=== PATIENT | female | born 1945 | race Caucasian/White ===

== ENCOUNTER 2019-11-01 12:01 | Emergency (ER) | payer MEDICARE, MEDICAID, SELFPAY ==
[2019-11-01 12:18] VITALS: BP 139/59; PULSE 73; RESP 18; TEMP 36.3; O2SAT 98
[2019-11-01 12:33] LABS: Glucose Point of Care > 500 (65-105)
--- NOTE | 2019-11-01 12:41 | ED.GENADULT ---
HPI - General Adult General Chief complaint: Back Pain/Injury Stated complaint: Back Pain Time Seen by Provider: 11/01/19 12:49 Source: patient and RN notes reviewed Mode of arrival: ambulatory Limitations: no limitations History of Present Illness HPI narrative: This patient has had bilateral lower lumbar back pain and feeling of muscle spasms in her back during the past 1 week this began actually on 10/26/2019 without trauma. She states she has a history of bilateral lower back pain associated with degenerative osteoarthritis and stenosis. She is never had a history of herniated disc. She has no pain radiating into her buttocks or down the legs to the feet. She has no numbness or tingling sensation in the legs. She does not hurt in the thoracic or neck area. She has had some frequency of urination during the past 1-1/2 to 2 weeks, she is diabetic on insulin and takes it twice a day. She did not take her insulin this morning. She states that she does have a glucometer at home but has not taken her blood sugar readings for the past week, but prior to that it was running 2 10-2 20. She has not had any ear pain, no nasal drainage, no sore throat, no fever, no cough. She has had no nausea, no vomiting, no diarrhea. She has had no hematuria, no dysuria, no pyuria but has had the polyuria. She has had mild polydipsia as well. Related Data Home Medications Medication Instructions Recorded Confirmed aspirin [Aspir-81] 81 mg PO DAILY 11/01/19 11/01/19 ferrous sulfate 325 mg PO DAILY 11/01/19 11/01/19 furosemide 40 mg PO DAILY 11/01/19 11/01/19 gabapentin 300 mg PO DAILY 11/01/19 11/01/19 insulin glargine [Lantus Solostar 60 unit SUBCUT BID 11/01/19 11/01/19 U-100 Insulin] magnesium oxide 400 mg PO DAILY 11/01/19 11/01/19 metoprolol succinate 25 mg PO DAILY 11/01/19 11/01/19 omeprazole 20 mg PO DAILY 11/01/19 11/01/19 potassium chloride 10 meq PO DAILY 11/01/19 11/01/19 pramipexole 0.5 mg PO DAILY 11/01/19 11/01/19 simvastatin 10 mg PO DAILY 11/01/19 11/01/19 spironolactone 25 mg PO DAILY 11/01/19 11/01/19 Allergies Allergy/AdvReac Type Severity Reaction Status Date / Time acetaminophen Allergy Mild sick to Verified 11/01/19 12:43 stomach hydrocodone Allergy Mild sick to Verified 11/01/19 12:43 stomach Sulfa (Sulfonamide Allergy Unknown Unknown Unverified 11/01/19 12:43 Antibiotics) fibrates Allergy Severe anaphalxis Uncoded 11/01/19 12:43 Review of Systems Review of Systems: Narrative: CONSTITUTIONAL: Denies fever, chills, or sweats. EYES: Denies visual changes, redness, or discharge. ENT: Denies rhinorrhea, congestion, sore throat, or otalgia. CARDIOVASCULAR: Denies chest pain, palpitations, or edema. RESPIRATORY: Denies cough or dyspnea. GASTROINTESTINAL: Denies abdominal pain, nausea, vomiting, or diarrhea. GENITOURINARY: Denies dysuria or hematuria. SKIN: Denies rash or itching. MUSCULOSKELETAL: Denies back pain, joint pain, or myalgia. NEUROLOGIC: Denies headache, numbness, or weakness. PSYCHIATRIC: Denies anxiety or depression. noncontributory except as pertains to the past medical history and history of present illness. [facility] Family History Family History (Updated 12/28/16 @ 23:56 by DOCTOR UNKNOWN) Mother Hypertension Family history of diabetes mellitus in first degree relative Family history of coronary artery disease, Onset Age: 72 Patient's mother is Father Family history of coronary artery disease, Onset Age: 74 Patient's father is Social History Social History Smoking status: Never smoker Alcohol intake: never Comments At time of signature, I have reviewed and agree with nursing past medical, surgical, social, and family history.Please see nursing chart for further information. There is no relevant family history pertinent to the presenting complaint. Exam Narrative: Exam Narrative: GENERAL: Well-appearing, well-nourished, an
== END 2019-11-01 13:08 | disposition home or self-care (01) ==
PROVIDERS: Emergency Provider Family Medicine; PCP Internal Medicine
DX: S39.012A Strain of muscle, fascia and tendon of lower back, initial encounter (principal); E11.9 Type 2 diabetes mellitus without complications; Z79.4 Long term (current) use of insulin; M48.061 Spinal stenosis, lumbar region without neurogenic claudication; M47.816 Spondylosis without myelopathy or radiculopathy, lumbar region; R63.1 Polydipsia; R35.8 Other polyuria
CPT/HCPCS: 81003; 82948; 87086; 87088; 99213; G0463

== ENCOUNTER 2020-01-20 09:26 | Emergency (ER) | payer MEDICARE, MEDICAID, SELFPAY ==
[2020-01-20 09:37] VITALS: BP 153/61; PULSE 96; RESP 18; TEMP 36.6; O2SAT 98
--- NOTE | 2020-01-20 09:39 | ED.GENADULT ---
HPI - General Adult General Chief complaint: Skin/Abscess/Foreign Body Stated complaint: Skin irritation Time Seen by Provider: 01/20/20 09:40 Source: patient and RN notes reviewed Mode of arrival: ambulatory Limitations: no limitations History of Present Illness HPI narrative: 74-year-old female presents with complaints of redness, tenderness, and swelling to right lower buttock for the past 4 days. China says she treated site with Prid without relief and then called her PMD on 01/19/20 who started her on Bactrim. Bactrim 2 doses, last this morning without relief. Tylenol (arthritis strength) without relief. Tender to touch. No drainage. No fever or chills. No abdominal pain, nausea, and vomiting. Denies headaches, weakness, fatigue, myalgia, or facial swelling. Denies chest pain or dyspnea. Denies cough, rhinorrhea, congestion, sore throat, nausea, vomiting, abdominal pain, and diarrhea. Tolerating po intake well. Denies recent traveling. Denies concerns for COVID-19 or exposures been home since [id number] order except for essential household needs and returned home. Remains active. Some parts of this dictation were generated by voice recognition software and may contain typographical and/or grammatical inaccuracies. Related Data Home Medications Medication Instructions Recorded Confirmed aspirin [Aspir-81] 81 mg PO DAILY 11/01/19 11/01/19 ferrous sulfate 325 mg PO DAILY 11/01/19 11/01/19 simvastatin 10 mg PO DAILY 11/01/19 11/01/19 cholecalciferol (vitamin D3) 100 mcg PO DAILY 01/20/20 01/20/20 [Vitamin D3] furosemide [Lasix] 80 mg PO DAILY 01/20/20 01/20/20 insulin glargine [Lantus Solostar 55 unit SUBCUT BID 01/20/20 01/20/20 U-100 Insulin] mecobalamin (vitamin B12) 1 mcg PO 01/20/20 metoprolol tartrate [Lopressor] 25 mg PO BID 01/20/20 01/20/20 Allergies Allergy/AdvReac Type Severity Reaction Status Date / Time acetaminophen Allergy Mild sick to Verified 01/20/20 09:41 stomach hydrocodone Allergy Mild sick to Verified 01/20/20 09:41 stomach Sulfa (Sulfonamide Allergy Unknown Unknown Unverified 01/20/20 09:41 Antibiotics) fibrates Allergy Severe anaphalxis Uncoded 01/20/20 09:41 Review of Systems Review of Systems: Narrative: CONSTITUTIONAL: Denies fever, chills, sweats. EYES: Denies visual changes, redness, discharge. ENT: Denies rhinorrhea, congestion, sore throat, otalgia. CARDIOVASCULAR: Denies chest pain, palpitations, edema. RESPIRATORY: Denies dyspnea, wheezing, cough. GASTROINTESTINAL: Denies abdominal pain, nausea, vomiting, diarrhea. GENITOURINARY: Denies dysuria, hematuria, abnormal discharge. SKIN: Denies rash or itching. Right lower buttock with redness, tenderness, swelling, and drainage. MUSCULOSKELETAL: Denies acute back pain, joint pain, or myalgia. NEUROLOGIC: Denies numbness or focal weakness. PSYCHIATRIC: Denies anxiety or depression. All systems reviewed & are unremarkable except as noted in HPI and below PMFSH Past Medical History Medical History (Updated 01/20/20 @ 10:51 by ALF Collado) Congestive heart failure Coronary artery disease Heart valve disorder History of gastroesophageal reflux (GERD) Hypercholesteremia Hypertension Surgical History Surgical History (Updated 01/20/20 @ 10:42 by ALF Collado) Heart valve replaced History of cardiac catheterization Stented coronary artery Family History Family History Mother Hypertension Family history of diabetes mellitus in first degree relative Family history of coronary artery disease, Onset Age: 72 Patient's mother is Father Family history of coronary artery disease, Onset Age: 74 Patient's father is Social History Social History (Updated 01/20/20 @ 10:43 by ALF Collado) Smoking status: Never smoker Second hand tobacco smoke exposure: No Alcohol i
== END 2020-01-20 10:10 | disposition home or self-care (01) ==
PROVIDERS: Emergency Provider Nurse Practitioner Family
DX: L02.31 Cutaneous abscess of buttock (principal); I25.10 Atherosclerotic heart disease of native coronary artery without angina pectoris; I50.9 Heart failure, unspecified; I11.0 Hypertensive heart disease with heart failure
CPT/HCPCS: 99211; G0463

== ENCOUNTER 2020-04-09 08:46 | Inpatient (IN) | payer MEDICARE, MEDICAID, SELFPAY ==
[2020-04-09] VITALS (24 sets, daily range): BP systolic 96–134; BP diastolic 47–90; PULSE 44–124; RESP 21–34; TEMP 35.8–38.7; O2SAT 72–100; BMI 42.6
--- NOTE | ~2020-04-09 | XR_ITS ---
EXAMINATION: XR chest 1V portable INDICATION: Shortness of breath, pulmonary edema TECHNIQUE: Portable AP chest at 0525 hours COMPARISON: 04/09/2020 FINDINGS: Diffuse patchy interstitial opacities persist with interval worsening in the upper lung zon es. There is no pleural effusion or pneumothorax. The cardiomediastinal silhouette is stable. There a re changes of prior cardiac valve surgery. IMPRESSION: 1. Diffuse lung disease with interval worsening in the upper lung zones, consistent with pneumonia an d/or pulmonary edema and/or acute respiratory distress syndrome (ARDS). Reviewed, dictated and finalized at location A. IMPRESSION: 1. Diffuse lung disease with interval worsening in the upper lung zones, consis tent with pneumonia and/or pulmonary edema and/or acute respiratory distress sy ndrome (ARDS).
--- NOTE | ~2020-04-09 | XR_ITS ---
EXAMINATION: XR chest 1V portable INDICATION: Shortness of breath and hypoxemia TECHNIQUE: Portable AP chest at 1002 hours COMPARISON: 02/11/2017 FINDINGS: There are airspace opacities of the mid and lower lung zones. No pleural effusion or pneumo thorax is identified. The heart size is normal. There are changes of prior cardiac valve surgery. IMPRESSION: 1. Airspace opacities of the mid and lower lung zones, consistent with pneumonia and/or pulmonary cedrick ma. Reviewed, dictated and finalized at location A. IMPRESSION: 1. Airspace opacities of the mid and lower lung zones, consistent with pneumoni a and/or pulmonary edema.
--- NOTE | 2020-04-09 08:54 | ED.GENADULT ---
HPI - General Adult General Chief complaint: Shortness of Breath/Dyspnea Stated complaint: SOB Time Seen by Provider: 04/09/20 08:54 Source: patient Mode of arrival: wheelchair Limitations: no limitations History of Present Illness HPI narrative: Patient is a 74-year-old female with a history of CHF, congestive heart failure, CABG who presents to the emergency department for evaluation of shortness of breath. Patient reports a 5-day history of worsening shortness of breath, productive cough. She reports chest pain with breathing. No nausea, diaphoresis, jaw pain or neck pain. She denies fever or chills. She reports worsening abdominal swelling and leg swelling. She has been compliant with her medications, she takes 80/40 Lasix daily, did take her medications this morning. She reports she has had no recent sick contacts or recent travel. Patient reports a wet cough. No hemoptysis. She denies any chest pain. Related Data Home Medications Medication Instructions Recorded Confirmed aspirin [Aspir-81] 81 mg PO DAILY 11/01/19 04/09/20 ferrous sulfate 325 mg PO DAILY 11/01/19 04/09/20 simvastatin 10 mg PO DAILY 11/01/19 04/09/20 cholecalciferol (vitamin D3) 100 mcg PO DAILY 01/20/20 04/09/20 [Vitamin D3] furosemide [Lasix] 120 mg PO BID 01/20/20 04/09/20 insulin glargine [Lantus Solostar 55 unit SUBCUT BID 01/20/20 04/09/20 U-100 Insulin] mecobalamin (vitamin B12) 1 mcg PO DAILY 01/20/20 04/09/20 metoprolol tartrate [Lopressor] 25 mg PO BID 01/20/20 04/09/20 gabapentin 300 mg PO DAILY 04/09/20 04/09/20 Allergies Allergy/AdvReac Type Severity Reaction Status Date / Time Fibrate Anti-Lipidemics Allergy Severe Anaphylaxis Verified 04/09/20 12:21 acetaminophen Allergy Mild sick to Verified 04/09/20 09:21 stomach hydrocodone Allergy Mild sick to Verified 04/09/20 09:21 stomach Sulfa (Sulfonamide Allergy Unknown Unknown Verified 04/09/20 09:21 Antibiotics) fibrates Allergy Severe anaphalxis Uncoded 01/20/20 09:41 Review of Systems Review of Systems: Narrative: CONSTITUTIONAL: Denies fever, chills, or sweats. EYES: Denies visual changes ENT: Denies rhinorrhea, congestion CARDIOVASCULAR:Reports chest pain with breathing, palpitations, reports bilateral lower extremity edema RESPIRATORY: Reports cough and shortness of breath GASTROINTESTINAL: Denies abdominal pain, nausea, vomiting, or diarrhea. GENITOURINARY: Denies dysuria or hematuria. SKIN: Denies rash or itching. MUSCULOSKELETAL: Denies back pain, joint pain, or myalgia. NEUROLOGIC: Denies headache, numbness, or weakness. [facility] Past Medical History Medical History Congestive heart failure Coronary artery disease Heart valve disorder History of gastroesophageal reflux (GERD) Hypercholesteremia Hypertension Surgical History Surgical History (Reviewed 04/09/20 @ 09: by Sondra Dumont MD) Heart valve replaced History of cardiac catheterization Stented coronary artery Family History Family History (Reviewed 04/09/20 @ 09: by Sondra Dumont MD) Mother Hypertension Family history of diabetes mellitus in first degree relative Family history of coronary artery disease, Onset Age: 72 Patient's mother is Father Family history of coronary artery disease, Onset Age: 74 Patient's father is Social History Social History (Reviewed 04/09/20 @ 09: by Sondra Dumont MD) Smoking status: Never smoker Second hand tobacco smoke exposure: No Alcohol intake: never Substance use: never Gender identity (if verbalized by the patient): Female Spiritual care concerns: No Exam Narrative: Exam Narrative: GENERAL: Awake, alert, conversant, dyspneic HEAD: Normocephalic, atraumatic. EYES: PERRLA and EOMI. ENT: Nares clear, no rhinorrhea or epistaxis. Mucous membranes moist. NECK: Supple. CHEST: Respiratory distress, oxygen 70% on ro
--- NOTE | 2020-04-09 09:02 | ECG_ITS ---
Measurements Intervals [place] Rate: 69 P: -46 OK: 173 QRS: 11 QRSD: 138 T: 76 QT: 470 QTc: 507 Interpretive Statements WANDERING PACEMAKER LEFT BUNDLE BRANCH BLOCK ABNORMAL ECG Electronically Signed On 04-09-2020 14:05:12 CDT by Quinton Russell D.O.
[2020-04-09 09:17] LABS: Basophils Percent Auto 0.3 % (0.2-1.2); Hematocrit 30.9 % (37.0-47.0); Hemoglobin 9.9 g/dL (12.0-15.0); Immature Granulocyte Absolute 0.02 K/mm3 (0.00-0.031); Immature Granulocyte Percent A 0.6 % (0-0.5); Lymphocytes Absolute Auto 1.01 K/mm3 (0.9-3.2); Lymphocytes Percent Auto 29.8 % (18.3-44.2); Mean Corpuscular Hemoglobin 27.9 pg (26-34); Mean Platelet Volume 10.4 fl (7.4-10.4); Monocytes Absolute Auto 0.2 K/mm3 (0.1-0.6); Monocytes Percent Auto 6.8 % (2.6-8.5); Neutrophils Absolute Auto 2.1 K/mm3 (1.3-6.7); Neutrophils Percent Auto 62.5 % (45.5-73.1); Platelet Count Result 116 k/mm3 (150-375); Red Blood Count 3.55 M/mm3 (4.2-5.4); Red Cell Distribution Width 16.3 % (11.5-14.5); White Blood Count 3.4 K/mm3 (4.5-10.0)
[2020-04-09] MEDS: FUROSEMIDE INJ 40 MG/4 ML VIAL 20 MG IV PUSH (09:21)
[2020-04-09 09:28] LABS: Alanine Aminotransferase 25 U/L (4-35); Albumin Level 3.5 g/dL (3.5-5.1); Alkaline Phosphatase 124 U/L (38-126); Aspartate Amino Transferase 53 U/L (14-36); Bilirubin,Total 0.4 mg/dL (0.2-1.3); Blood Urea Nitrogen 64 mg/dL (7-17); Calcium 8.2 mg/dL (8.4-10.2); Carbon Dioxide 21 mmol/L (22-30); Chloride 99 mmol/L (98-107); Estimated CRCL calculation 22 ml/min; Estimated Glomerular Filt Rate 19; Glucose 293 mg/dL (65-105); INR 1.1; Partial Thromboplastin Time 39.2 SECONDS (22.3-36.8); Potassium 4.8 mmol/L (3.4-5.0); Prothrombin Time 13.9 Seconds (11.1-14.7); Sodium 131 mmol/L (137-145)
[2020-04-09 09:35] LABS: Fractional Inspired Oxygen 32 %; HCO3 ABG 19.1 mEq/l (22.0-26.0); Oxygen Content ABG 13.3 %vol (16.0-22.0); Oxygen Saturation ABG 97.1 % (95.0-100.0); Oxyhemoglobin 95.6 % THb (90.0-100.0); PCO2 ABG 35.9 mmHg (35.0-45.0); PO2 ABG 97.2 mmHg (80.0-100.0); PO2 FiO2 Ratio Arterial Blood 3.04 %; Total Hemoglobin 9.8 g/dL (12.0-18.0); pH ABG 7.343 (7.350-7.450)
[2020-04-09 09:36] LABS: Device NASAL CANNULA; Modified Allen's Test Pass; Site Drawn RIGHT RADIAL
[2020-04-09 09:44] LABS: NT Pro B Type Natriuretic Pept 1100 PG/ML (5-100); Troponin I 0.105 ng/mL (0.000-0.034)
[2020-04-09 09:46] LABS: Appearance Urine Clear (Clear); Color Urine Yellow (Yellow); Hyaline Casts Urine 30-49 /lpf; Mucus Urine Rare /lpf; RBC Urine 0-2 /hpf (0-2); Squamous Epithelial Cell Urine Few /hpf (Few); WBC Urine 0-3 /hpf
[2020-04-09 09:47] LABS: Blood Urine Negative (Negative); Glucose Urine UA Negative (Negative); Ketones Urine Negative (Negative); Protein Urine Trace mg/dL (Negative)
[2020-04-09 09:48] LABS: Add Urine Microscopic? YES; Bilirubin Urine Negative (Negative); Leukocyte Esterase Ur Negative LEU/UL (Negative); Nitrate Urine Negative (Negative); Urobilinogen Urine Negative mg/dL (<2.0)
--- NOTE | 2020-04-09 10:17 | PC.NURSE ---
Patient BP 93/46, verbal order at this time to not give nitroglycerin drip r/t low bp.
[2020-04-09 11:04] LABS: CRP 6.8 mg/dL (<1.0); Lactate Dehydrogenase 1063 U/L (313-618)
--- NOTE | 2020-04-09 11:10 | PC.NURSE ---
Report received from RENATO Johnson. Pt on bipap, denies needs at this time.
--- NOTE | 2020-04-09 11:16 | PC.NURSE ---
Spoke with Peg(patients daughter) , updated that patients mother is going to be admitted.
[2020-04-09] MEDS: FUROSEMIDE INJ 100 MG/10 ML VIAL 80 MG IV PUSH (11:34)
--- NOTE | 2020-04-09 12:46 | ADMGEN ---
This patient, China Mcclendon, was admitted to Intensive Care Unit-4. Patient/family oriented to hospital policies and general routines including ID bracelet, bed and alarms, visiting hours, pain management, procedures, bathroom and other care routines, personal items, smoking policy, room service/diet, and visiting hours. Valuables list has been completed. Information on how to activate the Rapid Response Team has been discussed. Patient/Family are encouraged to report perceived risks to care and to ask questions if they do not understand what they are told or what they should do.
--- NOTE | 2020-04-09 13:34 | WPDCNINT ---
Assessment and Plan Assessment and plan (1) Respiratory failure: Qualifiers: Chronicity: acute Respiratory failure complication: hypoxia Qualified Code(s): J96.01 - Acute respiratory failure with hypoxia Code(s): J96.90 - Respiratory failure, unspecified, unspecified whether with hypoxia or hypercapnia Status: Acute Assessment and Plan: Patient presented on 04/09/2020 with shortness of breath, poor productive sputum, yellow in color for approximately 5-7 days. She was hypoxic in the ER with O2 sats of 70% on room air. Patient did improve after being placed on BiPAP. -she is currently on BiPAP setting of 12/5, 30% FiO2 with adequate tidal volume -patient being diuresed. -started patient on ceftriaxone and azithromycin in the ER -patient being aggressively diuresed per Cardiology hold consulted from the ED (2) Community acquired pneumonia: Qualifiers: Laterality: unspecified laterality Qualified Code(s): J18.9 - Pneumonia, unspecified organism Code(s): J18.9 - Pneumonia, unspecified organism Status: Acute Assessment and Plan: Chest x-ray shows bilateral infiltrates, likely pneumonia versus pulmonary edema -patient with cough productive of yellow sputum, will send sputum cultures -continue antibiotics as above - (3) Congestive heart failure: Qualifiers: Heart failure type: other Qualified Code(s): I50.9 - Heart failure, unspecified Code(s): I50.9 - Heart failure, unspecified Status: Acute Assessment and Plan: Patient with elevated proBNP, chest x-ray shows bilateral pulmonary edema/infiltrates -will obtain echocardiogram -patient is being diuresed, closely monitor urine output (4) Sepsis: Qualifiers: Acute respiratory failure type: with hypoxia Sepsis acute organ dysfunction status: with acute organ dysfunction Sepsis type: sepsis due to unspecified organism Severe sepsis acute organ dysfunction type: acute respiratory failure Severe sepsis shock status: without septic shock Qualified Code(s): A41.9 - Sepsis, unspecified organism; R65.20 - Severe sepsis without septic shock; J96.01 - Acute respiratory failure with hypoxia Code(s): A41.9 - Sepsis, unspecified organism Status: Acute Assessment and Plan: Pancytopenia, leukopenia, bilateral infiltrates on chest x-ray along with cough productive of yellow sputum -possible pneumonia -continue antibiotics as above -continue to monitor hemodynamics (5) Suspected 2019 novel coronavirus infection: Code(s): Z20.828 - Contact with and (suspected) exposure to other viral communicable diseases Status: Acute Assessment and Plan: Patient with leukopenia, pancytopenia currently elevated ferritin LDH and CRP. Procalcitonin pending, -will order D-dimer -SARS-CoV-2 PCR has been obtained -patient placed in negative pressure room since she is on BiPAP, with droplet, airborne and contact isolation/precautions (6) Essential hypertension: Code(s): I10 - Essential (primary) hypertension Status: Acute Assessment and Plan: Blood pressures have been stable, will hold all antihypertensives at this time (7) Hyperlipidemia: Code(s): E78.5 - Hyperlipidemia, unspecified Status: Acute Assessment and Plan: Will hold statin at this time since patient is on BiPAP (8) Acute kidney injury: Code(s): N17.9 - Acute kidney failure, unspecified Status: Acute Assessment and Plan: Acute kidney injury could be related to volume overload, sepsis/pneumonia -patient currently being diuresed, will to recheck BMP later this evening -continue to monitor urine output, electrolytes and renal function (9) Diabetes mellitus: Qualifiers: Diabetes mellitus type: type 2 Diabetes mellitus travel freight and 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
[2020-04-09 14:29] LABS: Troponin I 0.097 ng/mL (0.000-0.034)
[2020-04-09 14:42] LABS: D Dimer 0.39 ug/mL (<0.48)
--- NOTE | 2020-04-09 15:35 | PM.IMHP ---
H&P: HPI History of Present Illness Chief complaint: chf,pneumonia,sepsis Narrative: China Mcclendon is a 74 year old female who has a history of congestive heart failure and biological tissue aortic valve replacement. According to her home medications she takes 120 mg of Lasix p.o. b.i.d. which the patient confirmed with me. She stated she did take her a.m. dose this morning. She reported to ER that she had worsening abdominal swelling and leg swelling. She has been compliant with her home medications. She has not had any recent sick contacts. She has not had any fever chills. She said she has had a productive cough is mostly clear phlegm but sometimes she has thick yellow phlegm. Patient has chest pain with breathing. No nausea or vomiting. She has not had any fever chills. Her mask when she is out shopping. Patient stated that she has not had any previous problems with her kidneys. The patient was found to be hypoxic in the emergency room with her O2 sats in the 70s. She was placed on a BiPAP machine. She had bilateral coarse breath sounds in the emergency room. She was given a total of 100 mg of IV Lasix in the emergency room and a Argueta catheter was placed. Patient's BNP was 1100. Troponin initially was 0.105. 3 hour troponin was 0.097. Chest x-ray was read as of the mid and lower lung zones consistent with pneumonia and/or pulmonary edema. Patient was swabbed for covid 19. She is empirically started on is at the [facility]. Which looks similar to her labs 1 year ago. ABGs pH was 7.343. CO2 was normal PO2 was normal bicarb was 19.1 which is low. Patient was placed on a BiPAP machine 12/5 with oxygen titrate 90% FiO2 I believe is 30%. Patient appears to be tolerating well. She has a Argueta catheter draining clear yellow urine. H&H is 9.9 and 30.9. Platelets lower low at 116 which appears to be her baseline. 2.5 with a previous normal value. Blood pressure is holding at 104/47. CRP is noted to be 6.8. LDH is 1063. Lactic is normal. Ferritin is 448. Patient is talking in full sentences. She is awake and talkative. Date of service 04/09/2020 The shell worker was consulted has already seen the patient. Review of Systems Review of Systems: All systems reviewed & are unremarkable except as noted in HPI and below Constitutional: Constitutional: Reports as per HPI and Reports no additional constitutional complaints Eyes: Eyes: Reports as per HPI and Reports no additional eye complaints ENT: Reports system reviewed and no additional complaints, except as documented and Reports Normal hearing present Cardiovascular: Cardiovascular: Reports no additional cardiovascular complaints Respiratory: Respiratory: Reports no additional respiratory complaints and Reports no additional respiratory complaints Gastrointestinal: Gastrointestinal: Reports as per HPI and Reports no additional gastrointestinal complaints Musculoskeletal: Musculoskeletal: Reports no additional musculoskeletal complaints Integumentary/Breasts: Skin/Breast: Reports system reviewed and no additional complaints, except as docu and Reports as per HPI Neurologic: Reports system reviewed and no additional complaints, except as documented, Reports as per HPI and Reports Normal hearing present Psychiatric: Psychiatric: Reports no additional psychiatric complaints and Reports as per HPI Endocrine: Endocrine: Reports no additional endocrine complaints Hematologic/Lymphatic: Hematologic/Lymphatic: Reports no additional hematologic/lymphatic complaints Allergic/Immunologic: Allergic/Immunologic: Reports no additional allergic/immunologic complaints [facility] Past Medical History Medical History (Updated 04/09/20 @ 15:59 by Jody Galvez NP) Atrial fibrillation No anticoagulation paroxysmal Congestive heart failure Coronary artery disease Heart valve disorder History of gastroesophageal reflux (GERD) Hypercholesteremia Hypertension Surgical History Surgic
[2020-04-09] MEDS: INSULIN ASPART (*BKC) 100 UNITS/ML SUB-Q (15:43)
[2020-04-09 16:54] LABS: Glucose Point of Care 290 (65-105)
[2020-04-09 17:14] LABS: Troponin I 0.086 ng/mL (0.000-0.034)
[2020-04-09] MEDS: guaiFENesin/DEXTROMETHORPHAN 10 ML UDC PO (20:16)
--- NOTE | 2020-04-09 21:09 | PC.NURSE ---
At 04/09/20201999 patient noted to desaturate to 78%. Heart rate dropped to 40 with desaturation. Patient found to be in 3rd degree heart block. Dr. Lucas, Cardiology, called and orders received. Patient asymptomatic with low heart rate. BP remains stable.
[2020-04-09] MEDS: DOPamine 400 MG/D5W 250 ML 400 MG/250 ML BAG 10.2 MG IV CONT (21:27)
[2020-04-09] MEDS: HEPARIN SODIUM 5,000 UNITS/ML VIAL 5000 UNITS SUB-Q (21:28)
[2020-04-09 23:42] LABS: Glucose Point of Care 230 (65-105)
--- NOTE | 2020-04-09 23:53 | PC.NURSE ---
Patient noted to be in sinus tachycardia with a rate of 118 at 2150. Complains of nausea. Dopamine help and cardiology paged. Patient nausea subsided shortly after holding dopamine drip.
[2020-04-10] VITALS (12 sets, daily range): BP systolic 91–117; BP diastolic 41–60; PULSE 59–87; RESP 23–30; TEMP 36.1–37.7; O2SAT 91–100
[2020-04-10 05:28] LABS: Base Excess ABG -6.1 mEq/l (+/-2.0); Carboxyhemoglobin 0.3 % THb (0-2.0); Device NON-INVASIVE VENT; Fractional Inspired Oxygen 80 %; HCO3 ABG 19.1 mEq/l (22.0-26.0); Methemoglobin ABG 0.4 %THb (0-1.5); Modified Allen's Test Pass; Oxygen Content ABG 16.3 %vol (16.0-22.0); Oxygen Saturation ABG 98.3 % (95.0-100.0); Oxyhemoglobin 96.8 % THb (90.0-100.0); PCO2 ABG 36.5 mmHg (35.0-45.0); PO2 ABG 123.1 mmHg (80.0-100.0); PO2 FiO2 Ratio Arterial Blood 1.54 %; Reduced Hemoglobin 2.5 %THb (0-5.0); Site Drawn RIGHT RADIAL; Total Hemoglobin 11.8 g/dL (12.0-18.0); pH ABG 7.336 (7.350-7.450)
[2020-04-10] MEDS: HEPARIN SODIUM 5,000 UNITS/ML VIAL 5000 UNITS SUB-Q (05:29)
[2020-04-10 05:31] LABS: Non-Invasive Expiratory Pressure 5 CMH2O; Non-Invasive Inspiratory Pressure 12 CMH2O; Non-Invasive Vent Rate 12 /MIN
[2020-04-10 05:38] LABS: Hematocrit 30.7 % (37.0-47.0); Hemoglobin 9.6 g/dL (12.0-15.0); Immature Granulocyte Absolute 0.02 K/mm3 (0.00-0.031); Immature Granulocyte Percent A 0.5 % (0-0.5); Lymphocytes Absolute Auto 0.64 K/mm3 (0.9-3.2); Lymphocytes Percent Auto 17.3 % (18.3-44.2); Mean Corpuscular HGB Conc 31.3 g/dl (32-36); Mean Corpuscular Hemoglobin 27.4 pg (26-34); Mean Corpuscular Volume 87.7 fl (80-100); Mean Platelet Volume 10.4 fl (7.4-10.4); Monocytes Absolute Auto 0.2 K/mm3 (0.1-0.6); Monocytes Percent Auto 5.1 % (2.6-8.5); Neutrophils Absolute Auto 2.9 K/mm3 (1.3-6.7); Neutrophils Percent Auto 77.1 % (45.5-73.1); Platelet Count Result 95 k/mm3 (150-375); Red Cell Distribution Width 15.9 % (11.5-14.5); White Blood Count 3.7 K/mm3 (4.5-10.0)
[2020-04-10 05:50] LABS: D Dimer 0.57 ug/mL (<0.48)
[2020-04-10 05:58] LABS: Alanine Aminotransferase 22 U/L (4-35); Albumin Level 3.1 g/dL (3.5-5.1); Alkaline Phosphatase 96 U/L (38-126); Aspartate Amino Transferase 57 U/L (14-36); Bilirubin,Total 0.3 mg/dL (0.2-1.3); Blood Urea Nitrogen 70 mg/dL (7-17); Calcium 7.8 mg/dL (8.4-10.2); Carbon Dioxide 22 mmol/L (22-30); Chloride 101 mmol/L (98-107); Estimated CRCL calculation 24 ml/min; Estimated Glomerular Filt Rate 21; Glucose 265 mg/dL (65-105); Lactate Dehydrogenase 1243 U/L (313-618); Magnesium 2.2 mg/dL (1.6-2.3); Phosphorus 5.1 mg/dL (2.5-4.5); Potassium 5.3 mmol/L (3.4-5.0); Sodium 133 mmol/L (137-145)
[2020-04-10 06:03] LABS: Troponin I 0.105 ng/mL (0.000-0.034)
[2020-04-10 06:05] LABS: CRP 14.7 mg/dL (<1.0)
[2020-04-10 06:40] LABS: Hemoglobin A1C 10.5 % (<5.7)
[2020-04-10] MEDS: INSULIN ASPART (*BKC) 100 UNITS/ML SUB-Q ×2 (09:38→11:59)
[2020-04-10] MEDS: INSULIN GLARGINE (*BKC) 100 UNITS/ML 10 UNITS SUB-Q (09:38)
[2020-04-10] MEDS: guaiFENesin/DEXTROMETHORPHAN 10 ML UDC PO ×2 (09:39→12:47)
--- NOTE | 2020-04-10 10:16 | PM.CNCAR ---
Assessment and Plan Additional Plan Acute pulm edema, likely related to AV disease, possible precipitated by pneumonia, currently COVID-19 rule out. CHB last night resolved, plan TTE, Lasix 100 mg IV BID, get medical records from OSH, can use dopamine for BP support if she develops hypotension. History of Present Illness History of Present Illness Consult date/time: 04/10/20 10:16 Consult reason: congestive heart failure Reason For Visit: chf,pneumonia,sepsis Narrative: Patient presented with one week Hx of progressive SOB that has been sever and worse with lying flat and better with sitting, worse with mild activity, associated with cough, but no fever or sick contacts. She had AVR in [facility] 2017. No chest pain, she received lasix 100 mg IV yesterday and no significant improvement in her status, currently being evaluated for COVID-19 infection. She continue to be on nasal cannula. She developed CHB yesterday with HR down to 40s that resolved with Dopamine infusion and developed sinus tachycardia, and dopamine was discontinued. Review of Systems Review of Systems: All systems reviewed & are unremarkable except as noted in HPI and below PMFSH Past Medical History Medical History (Updated 04/09/20 @ 15:59 by Jody Galvez NP) Atrial fibrillation No anticoagulation paroxysmal Congestive heart failure Coronary artery disease Heart valve disorder History of gastroesophageal reflux (GERD) Hypercholesteremia Hypertension Surgical History Surgical History (Updated 04/09/20 @ 15:59 by Jody Galvez NP) Aortic valve replaced Heart valve replaced Bovine History of cardiac catheterization She stated that she did not have any stents placed or an open heart surgery. Family History Family History Mother Hypertension Family history of diabetes mellitus in first degree relative Family history of coronary artery disease, Onset Age: 72 Patient's mother is Father Family history of coronary artery disease, Onset Age: 74 Patient's father is Social History Social History (Updated 04/09/20 @ 16:01 by Jody Galvez NP) Social History: The patient stated that she lives home alone. She had 3 biological children but 1 in a house fire. She is a . 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 She also worked in a [employer] at 1 time. She desires to be a full code. At this time she does not have durable power deputy commonwealth's attorney for healthcare. But she will allow her children to make and life decisions for her. She states that she did not use tobacco alcohol marijuana or illicit drugs. Smoking status: Never smoker Second hand tobacco smoke exposure: No Alcohol intake: never Substance use: never Living arrangements: alone Gender identity (if verbalized by the patient): Female Spiritual care concerns: No Meds Home Medications and Allergies Home Medications Medication Instructions Recorded Confirmed Type aspirin [Aspir-81] 81 mg PO DAILY 11/01/19 04/09/20 History ferrous sulfate 325 mg PO DAILY 11/01/19 04/09/20 History simvastatin 10 mg PO DAILY 11/01/19 04/09/20 History cholecalciferol (vitamin D3) 100 mcg PO DAILY 01/20/20 04/09/20 History [Vitamin D3] furosemide [Lasix] 120 mg PO BID 01/20/20 04/09/20 History insulin glargine [Lantus Solostar 55 unit SUBCUT BID 01/20/20 04/09/20 History U-100 Insulin] mecobalamin (vitamin B12) 1 mcg PO DAILY 01/20/20 04/09/20 History metoprolol tartrate [Lopressor] 25 mg PO BID 01/20/20 04/09/20 History gabapentin 300 mg PO DAILY 04/09/20 04/09/20 History Allergies Allergy/AdvReac Type Severity Reaction Status Date / Time Fibrate Anti-Lipidemics Allergy Severe Anaphylaxis Verified 04/09/20 12:21 hydrocodone Allergy Mild sick to Verified 04/09/20 09:21 stomach Sulfa (Sulfonamide Allergy Unknown Unknown Verified 04/09/20 09:21 Antibiotics) f
--- NOTE | 2020-04-10 11:10 | WPDINTPN ---
Progress Note: A&P Assessment and Plan (1) Respiratory failure: Qualifiers: Chronicity: acute Respiratory failure complication: hypoxia Qualified Code(s): J96.01 - Acute respiratory failure with hypoxia Code(s): J96.90 - Respiratory failure, unspecified, unspecified whether with hypoxia or hypercapnia Status: Acute Assessment and Plan: Patient presented on 04/09/2020 with shortness of breath, poor productive sputum, yellow in color for approximately 5-7 days. She was hypoxic in the ER with O2 sats of 70% on room air. Patient did improve after being placed on BiPAP. -she is currently on BiPAP setting of 08/27, 80% FiO2 with adequate tidal volume -will place patient on flow oxygen therapy, 80% FiO2 and 40-50 L flow rate -patient being diuresed per Cardiology -continue ceftriaxone, I discontinue the azithromycin as patient had an episode of complete heart block last night. Was started on doxycycline (2) Community acquired pneumonia: Qualifiers: Laterality: unspecified laterality Qualified Code(s): J18.9 - Pneumonia, unspecified organism Code(s): J18.9 - Pneumonia, unspecified organism Status: Acute Assessment and Plan: Chest x-ray shows bilateral infiltrates, likely pneumonia versus pulmonary edema -patient with cough productive of yellow sputum, will send sputum cultures -continue antibiotics as above - (3) Congestive heart failure: Qualifiers: Heart failure type: other Qualified Code(s): I50.9 - Heart failure, unspecified Code(s): I50.9 - Heart failure, unspecified Status: Acute Assessment and Plan: Patient with elevated proBNP, chest x-ray shows worsening bilateral pulmonary edema/infiltrates -will obtain echocardiogram -patient is being diuresed, closely monitor urine output -appreciate cardiology evaluation recommendation (4) Sepsis: Qualifiers: Acute respiratory failure type: with hypoxia Sepsis acute organ dysfunction status: with acute organ dysfunction Sepsis type: sepsis due to unspecified organism Severe sepsis acute organ dysfunction type: acute respiratory failure Severe sepsis shock status: without septic shock Qualified Code(s): A41.9 - Sepsis, unspecified organism; R65.20 - Severe sepsis without septic shock; J96.01 - Acute respiratory failure with hypoxia Code(s): A41.9 - Sepsis, unspecified organism Status: Acute Assessment and Plan: Pancytopenia, leukopenia, bilateral infiltrates on chest x-ray along with cough productive of yellow sputum -possible pneumonia -continue antibiotics as above -continue to monitor hemodynamics (5) Suspected 2019 novel coronavirus infection: Code(s): Z20.828 - Contact with and (suspected) exposure to other viral communicable diseases Status: Acute Assessment and Plan: Patient with leukopenia, pancytopenia currently -SARS-CoV-2 PCR has been obtained -patient placed in negative pressure room since she is on BiPAP, with droplet, airborne and contact isolation/precautions (6) Essential hypertension: Code(s): I10 - Essential (primary) hypertension Status: Acute Assessment and Plan: Blood pressures have been stable, will hold all antihypertensives at this time (7) Hyperlipidemia: Qualifiers: Hyperlipidemia type: unspecified Qualified Code(s): E78.5 - Hyperlipidemia, unspecified Code(s): E78.5 - Hyperlipidemia, unspecified Status: Acute Assessment and Plan: Will hold statin at this time since patient is on BiPAP (8) Acute kidney injury: Code(s): N17.9 - Acute kidney failure, unspecified Status: Acute Assessment and Plan: Acute kidney injury could be related to volume overload, sepsis/pneumonia -creatinine slightly improved -patient currently being diuresed, -continue to monitor urine output, electrolytes and renal function (9) Diabetes mellitus: Qualifiers:
[2020-04-10] MEDS: DEXAMETHASONE SOD PHOS INJ 4 MG/ML VIAL 6 MG IV PUSH (11:57)
[2020-04-10 12:58] LABS: SARS-CoV-2 RNA PCR Positive
--- NOTE | 2020-04-10 16:15 | PM.DS ---
DS: Admitting Diagnosis Admitting Diagnosis Admitting Diagnosis: Acute respiratory failure with hypoxia DS: Discharge Diagnosis Discharge Diagnosis (1) Respiratory failure: Qualifiers: Chronicity: acute Respiratory failure complication: hypoxia Qualified Code(s): J96.01 - Acute respiratory failure with hypoxia Code(s): J96.90 - Respiratory failure, unspecified, unspecified whether with hypoxia or hypercapnia Status: Acute Assessment and Plan: The patient is on a BiPAP and her ABGs are within normal limits at this time. She has 12/5 on the BiPAP with 30% FiO2. To maintain O2 saturations greater than 90%. pt is covid positive. She is being treated for community-acquired pneumonia. family requesting transfer to [facility]. pt accepted to [facility] dr k[place]land. (2) Congestive heart failure: Qualifiers: Heart failure type: other Qualified Code(s): I50.9 - Heart failure, unspecified Code(s): I50.9 - Heart failure, unspecified Status: Acute Assessment and Plan: An echo has been ordered for the patient and cardiology has been consulted. Cardiology consultation greatly be appreciated. Patient has been started on IV Lasix for pulmonary edema. pt was on dopamine infusion for 20 minutes last night because of bradycardia. (3) Community acquired pneumonia: Qualifiers: Laterality: unspecified laterality Qualified Code(s): J18.9 - Pneumonia, unspecified organism Code(s): J18.9 - Pneumonia, unspecified organism Status: Acute Assessment and Plan: Patient was started on azithromycin and Rocephin. (4) Sepsis: Qualifiers: Acute respiratory failure type: with hypoxia Sepsis acute organ dysfunction status: with acute organ dysfunction Sepsis type: sepsis due to unspecified organism Severe sepsis acute organ dysfunction type: acute respiratory failure Severe sepsis shock status: without septic shock Qualified Code(s): A41.9 - Sepsis, unspecified organism; R65.20 - Severe sepsis without septic shock; J96.01 - Acute respiratory failure with hypoxia Code(s): A41.9 - Sepsis, unspecified organism Status: Acute Assessment and Plan: Patient is being treated with antibiotics. (5) Suspected 2019 novel coronavirus infection: Code(s): Z20.828 - Contact with and (suspected) exposure to other viral communicable diseases Status: Acute Assessment and Plan: Patient's ferritin and CRP are elevated. LDH is elevated. She has been swabbed for covid 19. (6) Acute kidney injury: Code(s): N17.9 - Acute kidney failure, unspecified Status: Acute Assessment and Plan: Continue to monitor (7) Elevated troponin: Code(s): R79.89 - Other specified abnormal findings of blood chemistry Status: Acute Assessment and Plan: An echo has been ordered. (8) Diabetes mellitus: Qualifiers: Diabetes mellitus type: type 2 Diabetes mellitus group home insulin use: with group home use Diabetes mellitus complication status: with other specified complication Qualified Code(s): E11.69 - Type 2 diabetes mellitus with other specified complication; Z79.4 - long term acute care registered nurse (current) use of insulin Code(s): E11.9 - Type 2 diabetes mellitus without complications Status: Acute Assessment and Plan: Accu-Cheks AC and HS. Sliding scale insulin. Patient is typically on Lantus at home but that is on hold since she is NPO. Will also check her A1c. (9) Atrial fibrillation: Code(s): I48.91 - Unspecified atrial fibrillation Status: Chronic Assessment and Plan: Patient is not on any anticoagulation. (10) Essential hypertension: Code(s): I10 - Essential (primary) hypertension Status: Acute Assessment and Plan: Metoprolol is on hold at this time. (11) Hyperlipidemia: Qualifiers: Hyperlipidemia type: unspecified Qual
--- NOTE | 2020-04-10 16:25 | PM.TDS ---
Transfer Discharge Sum: Prov Provider Date of admission: 04/09/20 10:54 Primary care physician: PHYSICIAN NOT ON STAFF Admitting clinician: Alicia Wilson MD Consults: 04/09/20 Consult to Physician Routine Comment: notified by ed Consulting Provider: Alis Ferraro call center receptionist/MD group to consult: Dr. Ferraro Reason for consultation: ICU Has provider been notified: Yes 04/09/20 10:56 Consult to Physician Routine Comment: Consulting Provider: Eron Barrientos Reason for consultation: CHF Has provider been notified: Yes DS: Admitting Diagnosis Admitting Diagnosis Admitting Diagnosis: Acute respiratory failure with hypoxia DS: Discharge Diagnosis Discharge Diagnosis (1) Respiratory failure: Qualifiers: Chronicity: acute Respiratory failure complication: hypoxia Qualified Code(s): J96.01 - Acute respiratory failure with hypoxia Code(s): J96.90 - Respiratory failure, unspecified, unspecified whether with hypoxia or hypercapnia Status: Acute Assessment and Plan: The patient is on a BiPAP and her ABGs are within normal limits at this time. She has 12/5 on the BiPAP with 30% FiO2. To maintain O2 saturations greater than 90%. pt is covid positive. She is being treated for community-acquired pneumonia. family requesting transfer to [facility]. pt accepted to [facility] dr k[place]. (2) Congestive heart failure: Qualifiers: Heart failure type: other Qualified Code(s): I50.9 - Heart failure, unspecified Code(s): I50.9 - Heart failure, unspecified Status: Acute Assessment and Plan: An echo has been ordered for the patient and cardiology has been consulted. Cardiology consultation greatly be appreciated. Patient has been started on IV Lasix for pulmonary edema. pt was on dopamine infusion for 20 minutes last night because of bradycardia. (3) Community acquired pneumonia: Qualifiers: Laterality: unspecified laterality Qualified Code(s): J18.9 - Pneumonia, unspecified organism Code(s): J18.9 - Pneumonia, unspecified organism Status: Acute Assessment and Plan: Patient was started on azithromycin and Rocephin. (4) Sepsis: Qualifiers: Acute respiratory failure type: with hypoxia Sepsis acute organ dysfunction status: with acute organ dysfunction Sepsis type: sepsis due to unspecified organism Severe sepsis acute organ dysfunction type: acute respiratory failure Severe sepsis shock status: without septic shock Qualified Code(s): A41.9 - Sepsis, unspecified organism; R65.20 - Severe sepsis without septic shock; J96.01 - Acute respiratory failure with hypoxia Code(s): A41.9 - Sepsis, unspecified organism Status: Acute Assessment and Plan: Patient is being treated with antibiotics. (5) Suspected 2019 novel coronavirus infection: Code(s): Z20.828 - Contact with and (suspected) exposure to other viral communicable diseases Status: Acute Assessment and Plan: Patient's ferritin and CRP are elevated. LDH is elevated. She has been swabbed for covid 19. (6) Acute kidney injury: Code(s): N17.9 - Acute kidney failure, unspecified Status: Acute Assessment and Plan: Continue to monitor (7) Elevated troponin: Code(s): R79.89 - Other specified abnormal findings of blood chemistry Status: Acute Assessment and Plan: An echo has been ordered. (8) Diabetes mellitus: Qualifiers: Diabetes mellitus type: type 2 Diabetes mellitus exterminator helper termite insulin use: with exterminator helper termite use Diabetes mellitus complication status: with other specified complication Qualified Code(s): E11.69 - Type 2 diabetes mellitus with other specified complication; Z79.4 - lobsterman (current) use of insulin Code(s): E11.9 - Type 2 diabetes mellitus without complications Status: Acute Assessment and Plan: Accu-C
[2020-04-10 16:59] LABS: Glucose Point of Care 231 (65-105)
[2020-04-10 16:59] LABS: Glucose Point of Care 210 (65-105)
--- NOTE | 2020-04-10 17:45 | PC.NURSE ---
This patient, China Mcclendon, was transferred to [[place] [id number] ] on 04/10/20 at 1415. Personal belongings sent with patient, purse with quiroz, debit card, phone and insurance account manager, clothes. Belongings list checked and signed with receiving [[facility] icu ]. Report given to [ satish rn]. Appropriate documentation sent with patient.
[2020-04-14 17:47] LABS: Procalcitonin 0.47 ng/mL (<0.10)
== END 2020-04-10 14:43 | disposition short-term general hospital (02) | DRG 871 ==
LOC: ANHED 11:08 → ANHICU 11:44
PROVIDERS: Internal Medicine; Nurse Practitioner; Admitting Provider Family Medicine; Emergency Provider Emergency Medicine; Visit Provider Family Medicine
DX: A41.89 Other specified sepsis (principal); J96.01 Acute respiratory failure with hypoxia; U07.1 COVID-19; J12.89 Other viral pneumonia; N17.9 Acute kidney failure, unspecified; D61.818 Other pancytopenia; R65.20 Severe sepsis without septic shock; R79.89 Other specified abnormal findings of blood chemistry; E11.9 Type 2 diabetes mellitus without complications; I48.0 Paroxysmal atrial fibrillation; I11.0 Hypertensive heart disease with heart failure; I50.9 Heart failure, unspecified; E78.5 Hyperlipidemia, unspecified; K21.9 Gastro-esophageal reflux disease without esophagitis; I25.10 Atherosclerotic heart disease of native coronary artery without angina pectoris; Z95.1 Presence of aortocoronary bypass graft; Z79.82 Long term (current) use of aspirin; Z95.2 Presence of prosthetic heart valve; Z95.5 Presence of coronary angioplasty implant and graft; Z79.4 Long term (current) use of insulin
CPT/HCPCS: 36415; 36600; 71045; 80053; 81001; 82375; 82728; 82805; 83036; 83050; 83605; 83615; 83735; 83880; 84100; 84145; 84484; 85025; 85380; 85610; 85730; 86140; 87040; 87635; 93005; 94002; 96365; 96367; 96374; 96375; 96376; 99291; A9270; C9803; J0131; J0456; J0461; J0696; J1100; J1265; J1644; J1815; J1940; U0003